=== PATIENT | female | born 1980 | race Caucasian/White ===

== ENCOUNTER 2024-10-26 16:08 | Emergency (ER) | payer MEDICAID ==
[2024-10-26 17:06] LABS: BASOPHILS ABSOLUTE AUTO 0.05 K/uL (0.00-0.20); BASOPHILS PERCENT AUTO 0.4 % (0.0-2.0); EOSINOPHILS ABSOLUTE AUTO 0.01 K/uL (0.00-0.50); EOSINOPHILS PERCENT AUTO 0.1 % (0.0-5.0); IMMATURE GRAN ABSOLUTE AUTO 0.01 10^3/uL (0.00-0.04); IMMATURE GRAN PERCENT AUTO 0.1 % (0.0-0.4); LYMPHOCYTES ABSOLUTE AUTO 0.72 K/uL (0.50-3.50); LYMPHOCYTES PERCENT AUTO 6.4 % (10.0-50.0); MONOCYTES ABSOLUTE AUTO 0.29 K/uL (0.00-1.00); MONOCYTES PERCENT AUTO 2.6 % (2.0-14.0); NEUTROPHILS ABSOLUTE AUTO 10.17 K/uL (1.40-7.00); NEUTROPHILS PERCENT AUTO 90.4 % (45.0-80.0); PLATELET COUNT,PLT 288 K/uL (150-350); RED BLOOD CELL COUNT 4.15 M/uL (3.77-5.09); RED CELL DISTRIBUTION WIDTH 12.5 % (11.2-14.1); WHITE BLOOD CELL COUNT,WBC 11.3 K/uL (4.0-10.2)
[2024-10-26] MEDS: Sodium Chloride 0.9% 10 ML Syringe FLUSH PRN (17:09)
[2024-10-26] MEDS: Ondansetron 4 MG/2 ML SDV IVPUSH ONE (17:12)
[2024-10-26 17:29] LABS: ALANINE AMINOTRANSFERASE,ALT 39 U/L (12-78); ASPARTATE AMNIOTRANSFERASE,AST 27 U/L (15-37); BILIRUBIN TOTAL 1.0 mg/dL (0.2-1.0); BLOOD UREA NITROGEN,BUN 14 mg/dL (7-18); CARBON DIOXIDE,CO2 29.7 mmol/L (21.0-32.0); CHLORIDE,CL 105 mmol/L (98-107); CREATININE 0.89 mg/dL (0.51-1.17); GLUCOSE RANDOM 149 mg/dL (70-99); POTASSIUM,K 4.4 mmol/L (3.5-5.1); PROTEIN TOTAL,TP 7.2 g/dL (6.4-8.2); SODIUM,NA 142 mmol/L (136-145)
[2024-10-26 17:31] LABS: ESTIMATED GFR 83 mL/min (>=60)
[2024-10-26 17:50] LABS: AMPHETAMINES SCREEN, URINE POSITIVE (NEGATIVE); COCAINE METABOLITES,URINE NEGATIVE (NEGATIVE); EDDP,URINE SCREEN NEGATIVE (NEGATIVE); METHAMPHETAMINES SCREEN, URINE POSITIVE (NEGATIVE); TCA SCREEN,URINE NEGATIVE (NEGATIVE); THC SCREEN,URINE 50 NG/ML POSITIVE (NEGATIVE)
[2024-10-26 17:52] LABS: BUPRENORPHINE SCREEN,URINE NEGATIVE (NEGATIVE); OXYCODONE SCREEN,URINE NEGATIVE (NEGATIVE)
[2024-10-26 18:13] VITALS: BP 121/78; PULSE 83
[2024-10-29 19:46] LABS: HIV 1,2 COMBO AG/AB CIA W/RFLX Negative (Negative)
== END 2024-10-26 18:05 | disposition home or self-care (01) ==
LOC: LL.ED 16:08
DX: R11.2 Nausea with vomiting, unspecified (principal); Z88.0 Allergy status to penicillin; Z88.5 Allergy status to narcotic agent; Z79.899 Other long term (current) drug therapy; F17.200 Nicotine dependence, unspecified, uncomplicated
CPT/HCPCS: 36415; 80053; 80305-QW; 80307; 85025; 87389; 96361; 96374; 99284-25; J2405; J7030